=== PATIENT | male | born 2000 | race Two or more races ===

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

== ENCOUNTER 2019-02-11 20:22 | Emergency (ER) | payer MEDICAID ==
[~2019-02-11] VITALS: Ht 162.6 cm; Wt 68.0 kg
[2019-02-11] MEDS ORDERED: ALBUTEROL SULF 2.5 MG/0.5ML(0.5%) NEB SOLN HHN STA (20:31)
[2019-02-11] MEDS ORDERED: IPRATROPIUM BROM 0.5 MG/2.5ML INH SOL NEB ONE (20:45)
[2019-02-11 21:23] VITALS: BP 138/76
[2019-02-11] MEDS ORDERED: methylPREDNISolone SOD SUCC 125 MG/2 ML VL IM ONE (21:30)
== END 2019-02-11 22:11 | disposition home or self-care (01) ==
LOC: ER 20:23
DX: J45.901 Unspecified asthma with (acute) exacerbation (principal); J06.9 Acute upper respiratory infection, unspecified
CPT/HCPCS: 71046; 94640; 96372; 99283; J2930; J7611; J7644

== ENCOUNTER → 2019-11-27 | Emergency (ER) | payer BC, MEDICAID ==
[~2019-11-27] VITALS: Ht 162.6 cm; Wt 72.6 kg
[2019-11-27 14:53] VITALS: BP 135/80
== END | disposition home or self-care (01) ==
LOC: ER 14:41
DX: Z48.01 Encounter for change or removal of surgical wound dressing (principal); J45.909 Unspecified asthma, uncomplicated